=== PATIENT | male | born 2000 | race Caucasian/White ===

== ENCOUNTER 2023-01-22 14:23 | Emergency (ER) | payer OTHER, SELFPAY ==
[2023-01-22 14:38] VITALS: BP 129/72; PULSE 88; RESP 18; TEMP 36.9; O2SAT 100
--- NOTE | 2023-01-22 14:48 | ED.NECK ---
HPI - Neck Pain/Injury General Chief Complaint: Neck Pain/Injury Stated Complaint: neck popped yesterday Time Seen by Provider: 01/22/23 14:27 Source: patient Mode of arrival: ambulatory Limitations: no limitations History of Present Illness HPI Narrative: 22-year-old male presents to [facility] complaints of pain to the right side of his neck which radiates down his right shoulder since yesterday. Patient reports that he was at work taking out the trash when he bent over and started with right-sided neck pain. Patient took 1 dose of ibuprofen with little relief. Patient denies numbness, tingling, bowel or bladder problems. Patient denies swelling, bruising, erythema. MD complaint: neck pain Onset (ago): day(s) (1) Place: work Radiation: right shoulder Relieving factors: remaining still Exacerbating factors: movement of extremity Treatments prior to arrival: ibuprofen Related Data Allergies Allergy/AdvReac Type Severity Reaction Status Date / Time No Known Allergies Allergy Verified 01/22/23 14:42 Review of Systems Constitutional: Constitutional: Denies chills, Denies fatigue, Denies fever(s) and Denies weakness ENT: Denies dizziness, Denies epistaxis and Denies nasal congestion Cardiovascular: Cardiovascular: Denies chest pain Respiratory: Respiratory: Denies cough, Denies dyspnea and Denies wheezing Gastrointestinal: Gastrointestinal: Denies heartburn, Denies diarrhea and Denies vomiting Musculoskeletal: Comments: Right-sided neck pains Integumentary/Breasts: Skin/Breast: Denies pruritus, Denies erythema and Denies rash PMFSH Comments At time of signature, I agree with nursing past medical, surgical, social and family history. There is no relevant family history pertinent to the presenting complaint. Exam Const: General: healthy appearing and no acute distress Nutritional Appearance: well nourished Orientation/consciousness: patient oriented x3 Limitations: no limitations HENMT: Head: normal to inspection Eyes: Conjunctivae: conjunctivae normal Neck: Neck: normal visual inspection and no lymphadenopathy Other: Pain noted to right trapezius region upon evaluation and palpation. There is no bruising, erythema, open wounds or signs infection noted. Full range of motion neck is noted. Resp: Effort & Inspection: normal respiratory effort and not labored Auscultation: clear to auscultation bilaterally, no crackles, no rales, no rhonchi and no wheezes Cardio: Rate: regular rate Rhythm: regular rhythm Heart sounds: no murmurs Skin: General skin exam: normal color Rashes: no rashes Wounds: no wounds Neuro: General: patient oriented x3 Speech: normal speech Psych: Affect: normal affect Attitude: cooperative Course Course Level of Care: Express Care Visit Vital Signs Vital signs: Vital Signs Temperature 36.9 C 01/22/23 14:38 Pulse Rate 88 01/22/23 14:38 Respiratory Rate 18 01/22/23 14:38 Blood Pressure 129/72 01/22/23 14:38 Pulse Oximetry 100 01/22/23 14:38 Oxygen Delivery Room Air 01/22/23 14:38 Temperature 36.9 C 01/22/23 14:38 Pulse Rate 88 01/22/23 14:38 Respiratory Rate 18 01/22/23 14:38 Blood Pressure 129/72 01/22/23 14:38 Pulse Oximetry 100 01/22/23 14:38 Oxygen Delivery Room Air 01/22/23 14:38 MDM - Neck Pain/Injury MDM Narrative Medical decision making narrative: Instructed patient to take medications as prescribed. Work excuse provided for patient. Instructed patient to proceed to emergency room if symptoms worsen. Differential Diagnosis Differential diagnosis: Likely torticollis and strain of neck muscle Critical Care Time Critical Care Time Critical Care Time: No Discharge Plan Discharge Clinical Impression: Strain of neck muscle Qualifiers: Encounter type: initial encounter Qualified Code(s): S16.1XXA - Strain of muscle, fascia and tendon at neck level, initial encounter Patient Disposition: Home,
== END 2023-01-22 15:02 | disposition home or self-care (01) ==
PROVIDERS: Emergency Provider Nurse Practitioner Family
DX: S16.1XXA Strain of muscle, fascia and tendon at neck level, initial encounter (principal); X58.XXXA Exposure to other specified factors, initial encounter; Y99.0 Civilian activity done for income or pay
CPT/HCPCS: 99213; G0463

== ENCOUNTER 2023-09-11 13:29 | Emergency (ER) | payer OTHER, SELFPAY ==
--- NOTE | ~2023-09-11 | XR_ITS ---
XR toe 1st RT min 2V DATE: 09/11/2023 13:47 INDICATION: Smashing injury. Blood under nail. TECHNIQUE: 3 views of first digit COMPARISON: None FINDINGS: No fracture or dislocation noted. Reaction or bone destruction. IMPRESSION: Negative Reviewed, dictated and finalized at location A. IMPRESSION: Negative
[2023-09-11 13:35] VITALS: BP 116/65; PULSE 64; RESP 18; TEMP 37.1; O2SAT 100
[2023-09-11] MEDS: IBUPROFEN 600 MG TABLET PO (14:21)
--- NOTE | 2023-09-13 23:10 | ED.LOWEXIN ---
HPI - Extremity Injury (Lower) General Chief Complaint: Extremity Injury, Lower Stated Complaint: Right big toe injury Time Seen by Provider: 09/11/23 13:59 Source: patient, RN notes reviewed and old records reviewed Mode of arrival: ambulatory Limitations: no limitations History of Present Illness HPI Narrative: 23-year-old male to [facility] for complaint of right great toe pain. Patient endorses that approximately 1 hour prior to arrival he dropped a heavy object it directly onto the dorsal right great toe. Patient endorsing pain 7/10 in exam room. patient denies numbness, tingling, Pertinent medical history, allergies. Related Data Home Medications Medication Instructions Recorded Confirmed No Home Medications 09/11/23 09/11/23 Allergies Allergy/AdvReac Type Severity Reaction Status Date / Time No Known Allergies Allergy Verified 09/11/23 14:07 Review of Systems Review of Systems: All systems reviewed & are unremarkable except as noted in HPI and below Constitutional: Constitutional: Reports no additional constitutional complaints Eyes: Eyes: Reports no additional eye complaints ENT: Reports system reviewed and no additional complaints, except as documented Cardiovascular: Cardiovascular: Reports no additional cardiovascular complaints, Denies chest pain and Denies dyspnea Respiratory: Respiratory: Reports no additional respiratory complaints, Denies cough and Denies dyspnea Musculoskeletal: Musculoskeletal: Reports as per HPI, Reports arthralgias, Reports joint swelling and Reports limited range of motion Comments: Right great toe Integumentary/Breasts: Skin/Breast: Reports nail changes ( right great toenail) Neurologic: Reports system reviewed and no additional complaints, except as documented Psychiatric: Psychiatric: Reports no additional psychiatric complaints PMFSH Comments At the time of my signature, I reviewed and agree with the nursing past medical, surgical, social, and family history. There is no relevant family history pertinent to the patient complaint. Exam Const: General: cooperative, healthy appearing, no acute distress, alert, uncomfortable and well nourished Nutritional Appearance: well nourished Orientation/consciousness: patient oriented x3 Limitations: no limitations HENMT: Head: normal to inspection Ears: external ears normal Face/Nose/Sinus: Normal external nose present, Normal nares present, normal facial exam, No erythema and No edema Face and sinus: normal facial exam, no erythema and no edema Mouth: Yes Normal oral and palatal mucosa present Eyes: General: appearance normal, both eyes and all related structures Neck: Neck: normal visual inspection, full ROM and no meningeal signs Lymphatic: no lymphadenopathy noted and no lymphedema noted Chest: Chest palpation & inspection: normal inspection of the chest Resp: Effort & Inspection: normal respiratory effort and able to speak in complete sentences Auscultation: clear to auscultation bilaterally Cardio: Jugular venous distension: no JVD Rate: regular rate Rhythm: regular rhythm Back/Spine/Pelvis: Cervical Spine: cervical ROM normal Skin: General skin exam: normal color, no rashes or lesions noted and turgor normal Neuro: General: patient oriented x3, gait normal, moves all extremities and no meningeal signs Speech: normal speech Gait exam (Neuro): Normal gait present Extrem: General: normal exam except as noted Right lower extremity: foot Details: tenderness Location: of the great toe ( right) Location: over the nailbed ( her rate) and abnormal ROM of toe Details: pain with active ROM Location: of the great toe ( right) and pain with passive ROM Location: of the great toe ( right); no unusual warmth Psych: Appearance: grossly normal and well kempt Course Course Emergency Course: Some parts of this dictation were generated by voice recognition software and may contain typographical and/o
== END 2023-09-11 14:30 | disposition home or self-care (01) ==
PROVIDERS: Emergency Provider Nurse Practitioner Family
DX: S90.211A Contusion of right great toe with damage to nail, initial encounter (principal); W20.8XXA Other cause of strike by thrown, projected or falling object, initial encounter
CPT/HCPCS: 11740; 73660; 99213; A9270; G0463